=== PATIENT | female | born 1990 | race Hispanic/Latino ===

== ENCOUNTER 2018-10-23 07:28 | Inpatient (IN) | payer MEDICAID, OTHER, SELFPAY ==
[2018-10-23] MEDS ORDERED: Ibuprofen 800 MG TAB PO PRN (08:06)
[2018-10-23] MEDS ORDERED: Lidocaine 1% (PF) 30 ML VIAL SC PRN (08:06)
[2018-10-23] MEDS ORDERED: Misoprostol 200 MCG TAB PR PRN (08:06)
[2018-10-23] MEDS ORDERED: Ondansetron PF 4 MG/2 ML Vial IVP PRN ×3 (08:06→16:05)
[2018-10-23] MEDS ORDERED: Promethazine HCl 25 MG/ML VIAL IM PRN ×2 (08:06→09:30)
[2018-10-23] MEDS ORDERED: NS / Oxytocin 40 units/1000ml 1,000 ML IV PRN (08:06)
--- NOTE | 2018-10-23 08:13 | PDOC.FPROB ---
FMR OB H&P: HPI - History of Present Illness Chief Complaint: contractions Indentification: 28 yr old at 39.5 by 17.6 wk sono History of Present Illness: Patient reports contractions for the last 24 hours. She reports leakage of fluid since about 11am yesterday (approx 22.5 hours ago). She has had minimal vaginal bleeding. She reports good movement. Contractions are painful and she would like an epidural. Otherwise no complaints. Primary Care Physician: Dr. Rose FMR OB H&P: Current - Care : 6 Para: 4 Gestational age: 39.5 Due date: 10/25/2018 Dating Criteria: 17.6 wks - OB Labs Blood type: O RH: positive Antibody Screen: negative HIV: negative RPR: negative HepBsAg: negative Rubella: immune Gonorrhea: negative Chlamydia: negative Pap Smear: NILM on 04/30/2016 1 hour gtt: 119 GBS: negative H&H: 11.9/35.4 Platelets: 242 - First Trimester Ultrasound First trimester: 17.6 wks - Anatomy Survey Anatomy survey: 22 wks GA- post placenta, normal anatomy [place] 51.5% FMR OB H&P: History - Past Medical History PMH: none - OB History OB History: 4 term vaginal deliveries 1 spont - ELECTRICIAN TECHNICIAN History ELECTRICIAN TECHNICIAN History: No hx of STDs or abnormal paps - Surgical History Sx History: none - Social History Social History: no tobacco, alcohol, or drug use - Family History Family History: denies pertinent family hx FMR OB H&P: Medications - Current Home Medications: Medication Instructions Recorded Confirmed Type Vitamin 1 tab PO DAILY 01/08/13 10/23/18 History Docusate Calcium [Surfak] 240 mg PO BID #60 cap 10/24/18 Rx Ferrous Sulfate [Feosol] 325 mg PO DAILY #30 tab 10/24/18 Rx Ibuprofen [Motrin] 800 mg PO Q8HR #60 tab 10/24/18 Rx Allergies/Adverse Reactions: Allergies Allergy/AdvReac Type Severity Reaction Status Date / Time No Known Allergies Allergy Verified 10/23/18 08:09 FMR OB H&P: ROS - Review of Systems General: denies: fever/chills ENT: denies: nasal congestion, rhinorrhea Cardiovascular: denies: chest pain Respiratory: denies: cough, congestion, shortness of breath Gastrointestinal: reports: abdominal pain. denies: nausea, vomiting, diarrhea Genitourinary (Female): reports: vaginal pain, vaginal bleeding, contractions, vaginal pressure. denies: dysuria, hematuria, vaginal discharge Musculoskeletal: reports: pain. denies: stiffness, tenderness, swelling Neurologic: denies: numbness, syncope, seizures Integumentary: denies: rash, lesions Hematologic/Lymphatic: denies: prolonged or excessive bleeding Psychological: denies: depression, anxiety FMR OB H&P: Vital Signs - Maternal Vital signs: BP: 129/86 HR: 93 RR: 18 Temp: 97.9 - Heart Tones Baseline: 145 Variability: moderate Acceleration: absent Deceleration: absent Category: category 1 [place] contractions every: 5 min FMR OB H&P: Physical Exam - Physical Exam General: NAD, awake, alert and oriented HEENT: normocephalic and atraumatic, EOMI, MMM Neck: supple, trachea midline Chest: non-tender to palpation Breast: symmetric Heart: RRR, no murmurs/rubs/gallops General: CTAB, no respiratory distress, good air movement, no rales/rhonchi, no wheezing Abdomen: soft, gravid, non-tender Musculoskeletal: FROM in all four extremities Neurological: cranial nerves II through XII intact Skin: no rash, capillary refill <2 seconds Psychiatric: intact recent and remote memory, good judgement and insight - Pelvic Exam SVE: /-1 Presentation: vertex Estimated Weight: 7 lbs FMR OB H&P: A/P - Problem List (1) Term Status: Chronic Code(s): Z34.80 - ENCOUNTER FOR SUPRVSN OF NORMAL , UNSP TRIMESTER Comment: s/p epidural, comfortable AROM @ 1120, clear fluid -Continue expectant management -If no cervical change at next check, will start pitocin Assessment and Plan: 28 yr old at 39.5 wks by 17.6 wk sono who presents in active labor with possible SROM. -cont expectant mgmt -desires epidural -normal Vital signs at this time -GBS neg -labs pending Discussion: Date/Time: 10/23/18811 This H&P was discussed with [Ines Rose] and [Gamaliel Bacon] who agree with the above documentation and plan. Addendum - Attending - Attending Attestation Date/Time: 10/25/18 2751 I personally evaluated the patient and discussed the management with Dr. Ewing on 10/23/18. I agree with the History, Examination, Assessment and Plan documented above with any addition or exceptions noted below. 28 yr old at 39.5 by 17.6 wk sono here in active labor after >18 hours contractions and possible SROM at home. Pt. afebrile and GBS negative. Will hold antibiotics for now unless s/s's of infection arise. Anticipate .
[2018-10-23 08:15] VITALS: BMI 28.0
[2018-10-23 08:20] LABS: Hemoglobin 11.9 g/dL (12.0-16.0); Mean Corpuscular HGB CONC 32.8 g/dL (32.0-36.0); Mean Corpuscular Hemoglobin 26.7 pg (27.0-31.0); Mean Corpuscular Volume 81.6 fL (78.0-98.0); Mean Platelet Volume 9.6 fL (7.4-10.4); Platelet Count 185 thou/uL (130-400); RBC Distribution Width 15.1 % (11.5-14.5); Red Blood Cell (RBC) Count 4.45 mill/uL (4.20-5.40); White Blood Cell (WBC) Count 9.3 thou/uL (4.8-10.8)
[2018-10-23] MEDS ORDERED: Fentanyl 4 mcg/Bup 0.1% Cadd 100 ML ONE (08:30)
[2018-10-23] MEDS: Lactated Ringer's 1,000 ML IV SCH ×2 (08:37→10:18)
[2018-10-23 09:03] LABS: Syphilis Antibody Nonreactive (Nonreactive); Syphilis Antibody Index 0.07 S/CO (<1.00 Non-Reactive)
[2018-10-23 09:04] LABS: HBSAg Index 0.22 S/CO (0-0.99); Hep B Surf Ag Non-Reactive S/CO (NonReactive)
[2018-10-23] MEDS ORDERED: Naloxone HCl 0.4 mg/ml Vial IVP PRN ×2 (09:30)
[2018-10-23] MEDS ORDERED: Eucerin (Mineral Oil/Petrolatum,White) 30 gm Jar TOP PRN (09:30)
[2018-10-23] MEDS ORDERED: Acetaminophen 325 MG TAB PO PRN (09:30)
[2018-10-23] MEDS ORDERED: Fentanyl 4 mcg/Bupivacaine 0.1% Cassette 100 ML EPIDURAL SCH (09:30)
[2018-10-23] MEDS ORDERED: Communication Order-Pharmacy FS SCH (09:30)
[2018-10-23] MEDS ORDERED: diphenhydrAMINE 50 MG/ML VIAL IVP PRN (09:30)
[2018-10-23] MEDS ORDERED: Lactated Ringer's 500 ML IV PRN (09:30)
[2018-10-23] MEDS ORDERED: ePHEDrine/0.9% NaCl/PF SYRINGE 50 mg/10 ml SLOW IVP PRN (09:30)
--- NOTE | 2018-10-23 09:57 | PDOC.LDPN ---
Labor & Delivery Progress Note - Subjective Subjective: comfortable - Objective Vital signs reviewed and normal: yes General: NAD, resting SVE: @ [address] Rose Dilation: 8 Effacement: 75% Station: -1 FHT: category 1, variability present [place] contractions every: 5 minutes - Assessment (1) Term Code(s): Z34.80 - ENCOUNTER FOR SUPRVSN OF NORMAL , UNSP TRIMESTER Current Visit: Yes Status: Chronic Comment: s/p epidural, comfortable -Will continue to monitor and AROM at next cervical check Plan: continue plan of care
[2018-10-23] MEDS ORDERED: Bupivacaine/Epinephrine 0.25% 30 ML VIAL ONE (11:11)
--- NOTE | 2018-10-23 11:35 | PDOC.LDPN ---
Labor & Delivery Progress Note - Subjective Subjective: comfortable - Objective Vital signs reviewed and normal: yes General: NAD, resting Uterine fundus: non tender SVE: @[address] Rose Dilation: 8 Effacement: 90% Station: -1 FHT: category 1, variability present [place] contractions every: 4-5 minutes AROM: clear fluid - Assessment (1) Term Code(s): Z34.80 - ENCOUNTER FOR SUPRVSN OF NORMAL , UNSP TRIMESTER Current Visit: Yes Status: Chronic Comment: s/p epidural, comfortable AROM @ 1120, clear fluid -Continue expectant management -If no cervical change at next check, will start pitocin Plan: continue plan of care
--- NOTE | 2018-10-23 12:34 | PDOC.LDPN ---
Labor & Delivery Progress Note - Subjective Subjective: comfortable - Objective Vital signs reviewed and normal: yes Uterine fundus: non tender SVE: @ [address] Rose Dilation: anterior lip Effacement: 100% Station: 0 FHT: category 2, early decelerations, variable decelerations (few with ctx), variability present [place] contractions every: 2-4 minutes - Assessment (1) Term Code(s): Z34.80 - ENCOUNTER FOR SUPRVSN OF NORMAL , UNSP TRIMESTER Current Visit: Yes Status: Chronic Comment: s/p epidural, comfortable AROM @ 1120, clear fluid -Continue expectant management -If no cervical change at next check, will start pitocin Plan: continue plan of care
--- NOTE | 2018-10-23 14:01 | PDOC.OPDEL ---
OB Operative/Delivery Note Delivery Dr/Surgeon: Lashay Vail Assist: Attend: Pre-Delivery Diagnosis: active labor Procedure/Post Delivery Dx: spontaneous vaginal delivery Anesthesia: epidural - Findings A Sex: female - 1 min: 9 - 5 min: 9 - Additional Findings/Plan Placenta delivered: spontaneous Repaired Obstetrical Laceration: none Estimated blood loss: qbl: 23ml Compilations/Other Findings: Vaginal Delivery Delivering Physician Lashay Vail Attending Procedure: Spontaneous Vaginal Delivery Anesthesia: epidural QBL: 23_ ml Pre-op Diagnosis: 1. Term intrauterine in labor Post-op Diagnosis: 1. Term intrauterine , delivered Indications: A 28 y/o female @ 39.5 wk by 17.6 wk sono presents in active labor Delivery Note: This is 28 yo F @39.5 wks who delivered a viable F infant at _1347_. Following an uneventful antepartum course, a vigorous f was delivered over an intact perineum in the L occipitoanterior position. Anterior Shoulder and then remainder of the body delivered. No nuchal cord. The head was held down and mouth and nares were bulb suctioned. Cord clamped after delayed cord clamping and cut and cord blood collected. Placenta delivered intact in the [place] presentation with a 3 vessel cord noted. Fundal massage was performed and the fundus was firm. The cervix and vagina were inspected and found to be free of lacerations. went to nursery in good condition for routine care. Apgars were 8/9_ at 1 & 5 minutes, respectively. Patient tolerated delivery well and went to after routine recovery/ care. Post delivery plan: routine recovery Addendum - Attending - Attending Attestation Date/Time: 10/25/18 5404 I, Gamaliel Bacon MD, personally evaluated the patient and discussed indications for the procedure described by Dr. King. I directly supervised and participated in the Spontaneous Vaginal Delivery and I agree with the description of procedure as documented above without any addition or exceptions.
[2018-10-23] MEDS ORDERED: NS / Oxytocin 40 units/1000ml 1,000 ML IV SCH (16:05)
[2018-10-23] MEDS ORDERED: diphenhydrAMINE 25 MG CAP PO PRN (16:05)
[2018-10-23] MEDS ORDERED: Bisacodyl 10 MG SUPP PR PRN (16:05)
[2018-10-23] MEDS ORDERED: Adacel (T-DAP) 0.5 ML SYRINGE IM ONE (16:05)
[2018-10-23] MEDS ORDERED: Milk Of Magnesia 30 ML UDCUP PO PRN (16:05)
[2018-10-23] MEDS ORDERED: Lanolin Ointment 7 GM TUBE TOP PRN (16:05)
[2018-10-23] MEDS: Ibuprofen 800 MG TAB PO SCH ×2 (16:51→23:02)
[2018-10-23] MEDS: Ferrous Sulfate 325 MG TAB PO SCH (16:51)
[2018-10-23] MEDS: Docusate Calcium (SURFAK) 240 MG CAP PO SCH (23:01)
--- NOTE | 2018-10-24 06:03 | PDOC.OBPPN ---
FMR OB PN: Subj - Interval History Hospital Day: 2 Day: 1 28 y/o @ 39.5 WGA delivered via @ 1347 on 10/23. Reports abdominal pain controlled with ibuprofen. Minimal lochia. Endorses ambulation and is tolerating PO. Breast feeding. Endorses flatus. Denies H/A, vision changes, chest pain, edema, N/V. FMR OB PN: Obj - Maternal Vital signs: BP: 102/64 HR: 85 RR: 16 Tmax: 97.6 Pox: 99% on RA Wt: 60.781 kg - Urine output I&O: 10/22/18 10/23/18 10/24/18 06:59 06:59 06:59 Intake Total 570 Balance 570 - Lochia Lochia: Minimal FMR OB PN: Exam - Physical Exam General: NAD, awake, alert and oriented HEENT: normocephalic and atraumatic, MMM, conjunctiva clear, no scleral icterus , grossly normal vision, grossly normal hearing Neck: supple, no LAD Heart: RRR, normal S1/S2, no murmurs/rubs/gallops, pulses present, no edema General: CTAB, no respiratory distress, good air movement, no rales/rhonchi, no wheezing Abdomen: soft, non-tender, bowel sound present Musculoskeletal: normal gait and station, pulses present Neurological: cranial nerves II through XII intact, no clonus, no focal deficit Skin: good tugor, capillary refill <2 seconds : no erythema, no edema, appropriately tender Lymphatic: no unusual bruising or bleeding, no purpura Psychiatric: intact recent and remote memory, good judgement and insight FMR OB PN: Data - Labs Lab results: Laboratory Results - last 24 hr 10/23/18 10/23/18 10/23/18 08:01 08:01 08:01 WBC RBC Hgb Hct MCV MCH MCHC RDW Plt Count MPV Syphilis IgG/IgM Ab Nonreactive Hep Bs Antigen Non-Reactive Blood Type O POSITIVE Antibody Screen NEGATIVE 10/23/18 08:01 WBC 9.3 RBC 4.45 Hgb 11.9 L Hct 36.3 MCV 81.6 MCH 26.7 L MCHC 32.8 RDW 15.1 H Plt Count 185 MPV 9.6 Syphilis IgG/IgM Ab Hep Bs Antigen Blood Type Antibody Screen FMR OB PN: A/P - Problem List (1) Term delivered Current Visit: Yes Status: Acute Code(s): O80 - ENCOUNTER FOR FULL-TERM UNCOMPLICATED DELIVERY Assessment and Plan: 28 y/o delivered via @ 39.5 WGA -Continue routine PP care -Encourage ambulation -Encourage breast feeding -PNV -Ibuprofen for pain control -Pt desires patch for contraception -f/u in 2 weeks at Clinic Disposition: Possible d/c this afternoon pending d/c and good pain control. Discussion: Date/Time: 10/24/18 0601 This H&P was discussed with Dr. Weiss who agrees with the above documentation and plan. Signature: Ines Rose MD, PGY-2 Addendum - Attending - Attending Attestation Date/Time: 10/24/18 9048 I personally evaluated the patient and discussed the management with Dr. rose. I agree with the History, Examination, Assessment and Plan documented above with any addition or exceptions noted below.
[2018-10-24] MEDS: Ibuprofen 800 MG TAB PO SCH ×2 (06:20→14:04)
[2018-10-24 06:30] LABS: Hemoglobin 10.1 g/dL (12.0-16.0); Mean Corpuscular HGB CONC 32.6 g/dL (32.0-36.0); Mean Corpuscular Hemoglobin 26.5 pg (27.0-31.0); Mean Corpuscular Volume 81.4 fL (78.0-98.0); Mean Platelet Volume 9.2 fL (7.4-10.4); Platelet Count 156 thou/uL (130-400); RBC Distribution Width 15.1 % (11.5-14.5); Red Blood Cell (RBC) Count 3.82 mill/uL (4.20-5.40); White Blood Cell (WBC) Count 10.8 thou/uL (4.8-10.8)
[2018-10-24] MEDS: Ferrous Sulfate 325 MG TAB PO SCH ×2 (07:36→16:05)
[2018-10-24] MEDS ORDERED: Prenatal Vitamin 1 TAB PO SCH (09:00)
[2018-10-24] MEDS: Docusate Calcium (SURFAK) 240 MG CAP PO SCH (09:00)
[2018-10-24 09:34] VITALS: TEMP 98.8
[2018-10-24 12:36] VITALS: BP 110/62
== END 2018-10-24 16:45 | disposition home or self-care (01) | DRG 807 ==
LOC: L&D/OP 07:28 → L&D 07:59 → 3SW 16:34
PROVIDERS: ADMIT Family Medicine; ATTEND Family Medicine
PROC: 10E0XZZ Delivery of Products of Conception, External Approach (ICD-10-PCS; principal; 2018-10-23)
PROC: 10907ZC Drainage of Amniotic Fluid, Therapeutic from Products of Conception, Via Natural or Artificial Opening (ICD-10-PCS; 2018-10-23)
DX: O76 Abnormality in fetal heart rate and rhythm complicating labor and delivery (principal); Z37.0 Single live birth; Z3A.39 39 weeks gestation of pregnancy
CPT/HCPCS: 36415; 51702; 85027; 86780; 86850; 86900; 86901; 87340; 90715; 99285; J2001